=== PATIENT | female | born 1985 | race Caucasian/White ===

== ENCOUNTER 2019-02-18 23:20 | Emergency (ER) | payer MEDICAID ==
--- NOTE | 2019-02-19 00:09 | ED Physician Chart ---
ED Chief Complaint/HPI - Patient Information Date Seen:: 02/19/19 Time Seen:: 00:00 Chief Complaint:: abdominal pain History of Present Illness:: Patient's had left upper quadrant pain for 2 weeks. Pain radiates to her low back. For the last 2 weeks she's had diarrhea 3-4 times per day. He's also had nausea and vomiting for 2 weeks primarily in the a.m. after breakfast. No recent foreign travel. Allergies:: Allergies Allergy/AdvReac Type Severity Reaction Status Date / Time codeine Allergy Verified 02/18/19 23:38 Vitals:: Vital Signs - 8 hr 02/18/19 23:30 Temp 98.7 F HR 64 RR 18 BP 118/78 O2 Sat % 100 Historian:: Patient Review:: Nurse's Note Reviewed ED Review of Systems - Review of Systems General/Constitutional: No fever, No chills Skin: No skin lesions Head: No headache Eyes: No loss of vision ENT: No earache Neck: No neck pain, No swelling Cardio Vascular: No chest pain, No palpitations Pulmonary: No SOB GI: Nausea, Vomiting, Diarrhea, Pain G/U: No dysuria Musculoskeletal: No bone or joint pain, No back pain Endocrine: No polyuria, No polydipsia Psychiatric: Prior psych history Hematopoietic: No bruising Allergic/Immuno: No urticaria Neurological: No syncope, No focal symptoms ED Past Medical History - Past Medical History Past Medical History: Other (hyperthyroidism) Family History: Heart disease, Diabetes Mel[place] Social History: Non Smoker, No Alcohol Surgical History: None Psychiatricy History: None Medication: None Family Medical History - Family Member Mother History Unknown: Yes ED Physical Exam - Physical Examination General/Constitutional: Awake, Well-developed, well-nourished, Alert Head: Atraumatic Eyes: Lids, conjuctiva normal, PERRL Skin: Nl inspection, No rash, No skin lesions, No ecchymosis ENMT: External ears, nose nl, TM canals nl, Nasal exam nl, Lips, teeth, gums nl Neck: No nuchal rigidity Respiratory: Nl effort/Exclusion, Clear to Auscultation, No Wheeze/Rhonchi/Rales Cardio Vascular: RRR, No murmur, gallop, rubs, NL S1 S2 GI: No organomegaly, No hernia, Normal BS's, Nondistended, No mass/bruits, No McBurney tenderness Other GI comments:: Left upper quadrant abdominal tenderness Extremities: Normal digits & nails Neuro/Psych: No focal deficits ED Labs/Radiology/EKG Results - Lab Results Results: Laboratory Results WBC 8.0 Th/cmm (4.8-10.8) 02/19/19 00:20 RBC 4.53 Mil/cmm (3.80-5.10) 02/19/19 00:20 Hgb 12.5 gm/dL (12-16) 02/19/19 00:20 Hct 38.3 % (41.0-60) L 02/19/19 00:20 MCV 84.4 fl (81-100) 02/19/19 00:20 MCH 27.7 pg (27.0-31.0) 02/19/19 00:20 MCHC Differential 32.8 pg (28.0-36.0) 02/19/19 00:20 RDW 13.2 % (11.5-20.0) 02/19/19 00:20 Plt Count 230 Th/cmm (150-400) 02/19/19 00:20 MPV 9.1 fl 02/19/19 00:20 Neutrophils % 64.8 % (40.0-80.0) 02/19/19 00:20 Lymphocytes % 25.0 % (20.0-50.0) 02/19/19 00:20 Monocytes % 7.4 % (2.0-10.0) 02/19/19 00:20 Eosinophils % 1.9 % (0.0-5.0) 02/19/19 00:20 Basophils % 0.9 % (0.0-2.0) 02/19/19 00:20 Sodium 139 mEq/L (136-145) 02/19/19 00:20 Potassium 4.0 mEq/L (3.5-5.1) 02/19/19 00:20 Chloride 106 mEq/L (98-107) 02/19/19 00:20 Carbon Dioxide 24.7 mEq/L (21.0-31.0) 02/19/19 00:20 Anion Gap 12.3 (7.0-16.0) 02/19/19 00:20 BUN 13 mg/dL (7-25) 04/12/19 00:20 Creatinine 0.6 mg/dL (0.6-1.2) 02/19/19 00:20 Est GFR ( Amer) > 60.0 ml/min (>90) 02/19/19 00:20 Est GFR (Non-Af Amer) > 60.0 ml/min 02/19/19 00:20 BUN/Creatinine Ratio 21.7 02/19/19 00:20 Glucose 92 mg/dL (70-105) 02/19/19 00:20 Calcium 8.7 mg/dL (8.6-10.3) 02/19/19 00:20 Magnesium 2.1 mg/dL (1.9-2.7) 02/19/19 00:20 Lipase 21 U/L (11-82) 02/19/19 00:20 Urine Color YELLOW 02/19/19 00:00 Urine Clarity CLEAR (CLEAR) 02/19/19 00:00 Urine pH 6.0 (4.6 - 8.0) 02/19/19 00:00 Ur Specific [place] >= 1.030 (1.005-1.030) 02/19/19 00:00 Urine Protein NEGATIVE mg/dL (NEGATIVE) 02/19/19 00:00 Urine Glucose (UA) NEGATIVE mg/dL (NEGATIVE) 02/19/19 00:00 Urine Ketones NEGATIVE mg/dL (NEGATIVE) 02/19/19 00:00 Urine Blood SMALL (NEGATIVE) H 02/19/19 00:00 Urine Nitrate NEGATIVE (NEGATIVE) 02/19/19 00:00 Urine Bilirubin NEGATIVE (NEGATIVE) 02/19/19 00:00 Urine Urobilinogen 0.2 E.U./dL (0.2 - 1.0) 02/19/19 00:00 Ur Leukocyte Esterase SMALL (NEGATIVE) H 02/19/19 00:00 ED Assessment - Assessment General Assessment: There is a very good chance patient has irritable bowel syndrome and she needs a EGD as her next diagnostic procedure. I asked patient to request her primary care physician to refer her to a funding specialist for possible EGD ED Septic Shock - . Is Septic Shock (SBP<90, OR Lactate>4 mmol\L) present?: No - <6hrs of presentation: Vital Signs: Vital Signs - 8 hr 02/18/19 23:30 Temp 98.7 F HR 64 RR 18 BP 118/78 O2 Sat % 100 ED Reassessment (Disposition) - Reassessment Reassessment Condition:: Unchanged - Diagnosis Diagnosis:: Gastritis; probable irritable bowel syndrome. - Aftercare/Follow up Instructions Aftercare/Follow-Up Instructions:: Refer to Discharge Instructions - Patient Disposition Discharge/Transfer:: Home Condition at Disposition:: Stable, Unchanged
[2019-02-19 00:28] LABS: % BASOPHILS 0.9 % (0.0-2.0); % EOSINOPHILS 1.9 % (0.0-5.0); % MONOCYTES 7.4 % (2.0-10.0); % NEUTROPHILS 64.8 % (40.0-80.0); BASOPHILE ABSOLUTE 0.1 Th/cumm (0-0.2); EOSINOPHILE ABSOLUTE 0.2 Th/cmm (0.1-0.4); HEMATOCRIT 38.3 % (41.0-60); HEMOGLOBIN 12.5 gm/dL (12-16); MEAN CELL VOLUME 84.4 fl (81-100); MEAN CORPUSCULAR HEMOGLOBIN 27.7 pg (27.0-31.0); MEAN CORPUSCULAR HGB CONC 32.8 pg (28.0-36.0); MEAN PLATELET VOLUME 9.1 fl; MONOCYTE ABSOLUTE 0.6 Th/cmm (0.3-1.0); NEUTROPHILE ABSOLUTE 5.1 Th/cmm (1.8-8.0); PLATELET COUNT 230 Th/cmm (150-400); RED BLOOD COUNT 4.53 Mil/cmm (3.80-5.10); RED CELL DISTRIBUTION WIDTH 13.2 % (11.5-20.0)
[2019-02-19 00:50] LABS: ANION GAP 12.3 (7.0-16.0); BUN - UREA NITROGEN 13 mg/dL (7-25); CALCIUM SERUM 8.7 mg/dL (8.6-10.3); CARBON DIOXIDE 24.7 mEq/L (21.0-31.0); CHLORIDE 106 mEq/L (98-107); CREATININE - SERUM 0.6 mg/dL (0.6-1.2); GFR AFRICAN-AMERICAN > 60.0 ml/min (>90); GFR NON AFRICAN-AMERICAN > 60.0 ml/min; GLUCOSE 92 mg/dL (70-105); LIPASE 21 U/L (11-82); MAGNESIUM 2.1 mg/dL (1.9-2.7); SODIUM SERUM 139 mEq/L (136-145)
[2019-02-19 01:39] LABS: URINE SOURCE RANDOM
[2019-02-19 01:45] LABS: URINE BILIRUBIN NEGATIVE (NEGATIVE); URINE BLOOD SMALL (NEGATIVE); URINE GLUCOSE (UA) NEGATIVE (NEGATIVE); URINE KETONE NEGATIVE (NEGATIVE); URINE LEUKOCYTE ESTERASE SMALL (NEGATIVE); URINE MICROSCOPIC INDICATED? YES; URINE NITRATE NEGATIVE (NEGATIVE); URINE PROTEIN NEGATIVE (NEGATIVE); URINE UROBILINOGEN 0.2 E.U./dL (0.2 - 1.0)
[2019-02-19 01:46] LABS: URINE CLARITY CLEAR (CLEAR); URINE COLOR YELLOW
[2019-02-19 01:52] LABS: URINE BACTERIA FEW /hpf (NONE SEEN); URINE EPITHELIAL CELLS FEW /lpf (FEW); URINE WBC 0-2 /hpf (0-5)
== END 2019-02-19 02:07 | disposition home or self-care (01) ==
LOC: ER 23:20
DX: K29.70 Gastritis, unspecified, without bleeding (principal); Z88.5 Allergy status to narcotic agent
CPT/HCPCS: 36415-UA; 80048-TC; 81001-TC; 81025-TC; 83690-TC; 83735-TC; 85025-TC; Z7502